=== PATIENT | male | born 1970 | race Caucasian/White ===

== ENCOUNTER 2016-08-22 17:17 | Emergency (ER) | payer OTHER | END 2016-08-22 20:42 | disposition home or self-care (01) | LOC: ER1 17:17 | DX: S13.9XXA Sprain of joints and ligaments of unspecified parts of neck, initial encounter (principal); X58.XXXA Exposure to other specified factors, initial encounter; I51.9 Heart disease, unspecified; F17.290 Nicotine dependence, other tobacco product, uncomplicated; Z79.82 Long term (current) use of aspirin; Z79.899 Other long term (current) drug therapy | CPT/HCPCS: 72125; 96372; 99283; J2270; J2550 ==